=== PATIENT | male | born 1985 | race Caucasian/White ===

== ENCOUNTER 2019-08-28 14:31 | Emergency (ER) | payer SELFPAY ==
[2019-08-28 14:32] VITALS: BP 136/83; PULSE 124; RESP 18; TEMP 36.1; O2SAT 99; BMI 34.0
--- NOTE | 2019-08-28 14:38 | ED.VIS.GEN ---
History of Present Illness Chief Complaint: Lower Extremity Injury Detail of Chief Complaint: Injury right Achilles tendon Informant: Patient Onset: Yesterday Context: Sudden Onset Quality: Pain Location: Right Achilles tendon Current Severity: Mild Maximum Severity: Moderate Worsened by: Pushing off Relieved by: Rest Associated Symptoms: Difficulty ambulating Narrative: Patient is a 33-year-old male who presents with right Achilles tendon injury. He states he was walking foot went into a hole felt like rubber band snapped. He presents with limp. He denies paresthesia, anesthesia motor weeks. He denies hip, knee or anterior ankle pain. He localizes the pain over the Achilles tendon. Prior similar symptoms: No Recent Illness/Hospitalization: No - Past Medical History (1) No significant past medical history Status: Acute Past Medical History - Allergies and Home Meds Allergies/Adverse Reactions: Allergies No Known Allergies Allergy (Verified 09/28/17 12:54) Primary Care Physician: Care Physician,No Primary [Primary Care Provider] - Prior records reviewed: No Past Medical History: None Lives: Spouse/ Significant Other Smoking Status: Current every day smoker Alcohol: Rare Review of Systems General: Denies: Chills, Fever, Malaise Musculoskeletal: Reports: Extremity Pain. Denies: Myalgias, Arthralgias, Neck pain, Back pain, Swelling Skin: Denies: Rash, Wounds Neurological: Denies: Weakness, Parasthesia, Numbness Hematologic: Denies: Easy bruising, Easy bleeding Allergy: Denies: Uticaria, Swelling of the mouth Physical Exam Vital Signs/Narrative: Vital Signs Temp Pulse Resp BP Pulse Ox 08/28/19 14:32 96.9 F L 124 H 18 136/83 H 99 Inital Vital Signs reviewed: Yes General: Well nourished, Well developed, No Acute Distress Head: Normocephalic, Atraumatic Eyes: Perrl, EOMI. Negative for: Pale conjunctiva, Scleral icterus Cardiovascular: Regular rate, Regular rhythm Respiratory: No distress Extremities: No edema, Tenderness - Ears over the right Achilles tendon. Mckeon's test in the Achilles tendon is intact. Palpation of the Achilles tendon reveals gritty mass with passive dorsi and plantar flexion. There is no appreciable defect., - - There is no pain to palpation over the lateral medial malleolus. There is no pain the patient over the base of the fifth metatarsal. DP and PT pulses are palpable.. Negative for: Nontender Skin: Normal color, No rash, No Trauma. Negative for: Cyanosis, Diaphoresis, Jaundice Neurological: Alert, Oriented x3, Normal Strength, Normal Sensation. Negative for: Normal Gait Psychological: Normal affect Diagnostic/Tx/Re-eval - Medical Decision Making Patient has traumatic Achilles tendinitis. The tendon is functionally intact and there is no palpable defect. Since there is no contra indication NSAIDs he was treated with NSAIDs and crutches. He was referred to podiatry. ED Disposition - Plan for ED Patient: Disposition: Home or Assisted Living Diagnosis: Achilles tendinitis, right leg Instructions: What Is Tendinitis of the Foot? Prescriptions: Naproxen [Naprosyn] 500 mg PO BID #14 tab Prescription Printed Referrals: Care Physician,No Primary [Primary Care Provider] - 3-5 Days Dallas Sharma DPM [STAFF PHYSICIAN] - 3-5 Days Additional Instructions: Use crutches until cleared by Dr. Sharma. Weight-bear as tolerated only
== END 2019-08-28 15:10 | disposition home or self-care (01) ==
LOC: ED 14:55
PROVIDERS: Emergency Provider Emergency Medicine
DX: M76.61 Achilles tendinitis, right leg (principal); R26.2 Difficulty in walking, not elsewhere classified; W17.2XXA Fall into hole, initial encounter; Y93.9 Activity, unspecified; Y92.9 Unspecified place or not applicable; Y99.9 Unspecified external cause status; F17.200 Nicotine dependence, unspecified, uncomplicated
CPT/HCPCS: 99283

== ENCOUNTER 2020-10-31 13:13 | Emergency (ER) | payer SELFPAY ==
[2020-10-31 13:14] VITALS: BP 121/77; PULSE 82; RESP 17; TEMP 36.2; O2SAT 99; BMI 33.2
[2020-10-31 13:17] VITALS: BP 121/77; PULSE 80; RESP 17; TEMP 36.2; O2SAT 99
--- NOTE | 2020-10-31 13:32 | ED.VIS.GEN ---
History of Present Illness Chief Complaint: Cellulitis Informant: Patient Onset: Days Context: Gradual Onset Timing: Continuous Current Severity: Moderate Maximum Severity: Moderate Narrative: Patient is a 34-year-old male with medical history significant for prior MRSA the presents to the emergency department for wound on his right leg. Patient states he noticed a small red area a few days ago. He states he tito a grand [place] around it. Last night when he got home from work, the redness had spread. He denies any fevers or chills. He has no history immunosuppression. He is not on any daily medications. He cannot recall any trauma. He states he did try to squeeze the area and some pus. Came out Prior similar symptoms: No Recent Illness/Hospitalization: No Past Medical History - Allergies and Home Meds Allergies/Adverse Reactions: Allergies No Known Allergies Allergy (Verified 10/31/20 13:14) Primary Care Physician: Care Physician,No Primary [Primary Care Provider] - Prior records reviewed: Yes Past Medical History: None Surgical History: no surgical history Smoking Status: Former smoker Review of Systems General: Denies: Chills, Fever, Sweats Eyes: Denies: Visual changes - bilaterally, Diplopia ENT: Denies: Rhinorrhea, Sore throat Cardiovascular: Denies: Chest pain, Palpitations Respiratory: Denies: Dyspnea, Cough, Dyspnea on exertion Gastrointestinal: Denies: Abdominal pain, Nausea, Vomiting, Diarrhea, Melena, Hematochezia Genitourinary: Denies: Dysuria, Hematuria, Frequency Musculoskeletal: Denies: Back pain, Extremity Pain Skin: Denies: Rash, Wounds Neurological: Denies: Headache, Weakness, Numbness Physical Exam Vital Signs/Narrative: Vital Signs Temp Pulse Resp BP Pulse Ox 10/31/20 13:17 97.2 F L 80 17 121/77 H 99 10/31/20 13:14 97.2 F L 82 17 121/77 H 99 Inital Vital Signs reviewed: Yes General: Well nourished, Well developed, No Acute Distress Head: Normocephalic, Atraumatic Eyes: Perrl, EOMI ENT: Moist mucous membranes, No rhinorrhea Neck: Supple, Nontender Cardiovascular: Regular rate, Regular rhythm, No murmurs Respiratory: No distress, CTA bilaterally, Chest nontender Abdomen: Soft, Nontender, Nondistended, Normal bowel sounds Back: Nontender, Normal Inspection Extremities: Nontender, No edema Skin: - - Patient has 2 cm ovoid abscess just distal to the tibial tuberosity. There is some surrounding cellulitis. There is no significant streak. The compartments are soft. The pulses are normal. Neurological: Alert, Oriented x3, Cranial nerves II-XII grossly intact, Normal Strength, Normal Sensation Psychological: Normal affect, Normal Mood Diagnostic/Tx/Re-eval - Medical Decision Making Patient did have a small abscess with surrounding cellulitis. He was consented for incision and drainage. The area was prepped with chlorhexidine. 2 cc of lidocaine 1% with epinephrine were injected. Small incision was made with the 11 blade. Scant purulent material was able to be expressed. The pocket was very shallow. I do not feel needed packing. The patient will be placed on Bactrim. I did employee counselor him that if this is not improving or worsening in any way follow-up with his primary care or return to the emergency department within the next 24 to 48 hours. He is comfortable with this. . Impression 1. Right guy abscess with incision and drainage ED Disposition - Plan for ED Patient: Instructions: ED Abscess Incision And Drainage Prescriptions: Smz/Tmp Ds [Bactrim Ds] 1 tab PO BID #14 tab Prescription Printed Hydrocodone Bitart/Apap 5-325 [[place] 5MG-325MG] 1 tab PO Q6H PRN PRN 2 Days #7 tab PRN Reason: Pain Prescription Printed Referrals: Care Physician,No Primary [Primary Care Provider] -
[2020-10-31] MEDS: Lidocaine 1% /Epi 1:100 (20ml) 20 ML Vial INFILT (13:44)
[2020-10-31 14:22] VITALS: RESP 15
== END 2020-10-31 14:24 | disposition home or self-care (01) ==
LOC: ED 13:54
PROVIDERS: Emergency Provider Emergency Medicine
DX: L02.415 Cutaneous abscess of right lower limb (principal); Z86.14 Personal history of Methicillin resistant Staphylococcus aureus infection; Z87.891 Personal history of nicotine dependence
CPT/HCPCS: 10060; 99283

== ENCOUNTER 2020-11-01 14:26 | Emergency (ER) | payer SELFPAY ==
[2020-10-31 13:14] VITALS: BMI 33.2
[2020-11-01 14:27] VITALS: BP 128/90; PULSE 76; RESP 18; TEMP 36.9; BMI 33.1
--- NOTE | 2020-11-01 14:40 | ED.DCSUM_ITS ---
History of Present Illness Chief Complaint: Cellulitis Narrative: 34-year-old male with history of MRSA presenting for worsening of cellulitic change on his leg. He states there was just a small iroquois and a small area of fluctuance which was outlined yesterday after incision and drainage. He states he is taken 3 doses of Bactrim and has not had this improved. In fact, he states that his entire anterior guy and somewhat surrounding medial and lateral areas are re now more red than they were. He does states that it hurts. Patient states that he had failure of outpatient about X in the past had to get a PICC line for IV antibiotics. He states this was several years ago. He denies fever. He states he feels a little bit more tired than usual. No nausea/vomiting. Past Medical History - Allergies and Home Meds Allergies/Adverse Reactions: Allergies No Known Allergies Allergy (Verified 10/31/20 13:14) Primary Care Physician: Care Physician,No Primary [Primary Care Provider] - Prior records reviewed: Yes Past Medical History: - - History of MRSA, failure of outpatient antibiotics. Surgical History: no surgical history Lives: Alone Smoking Status: Former smoker Alcohol: None Drugs: None Review of Systems General: Denies: Chills, Fever Eyes: Denies: Visual changes - bilaterally, Diplopia ENT: Denies: Rhinorrhea, Sore throat Cardiovascular: Denies: Chest pain, Palpitations Respiratory: Denies: Dyspnea, Cough, Dyspnea on exertion Gastrointestinal: Denies: Abdominal pain, Nausea, Vomiting, Diarrhea, Melena, Hematochezia Musculoskeletal: Reports: Extremity Pain. Denies: Back pain - Pain in the right tibia Skin: Reports: Rash, Abscess - Abscess right tibia with surrounding erythema. Neurological: Denies: Parasthesia, Numbness Psych: Reports: Depression. Denies: Anxiety Physical Exam Vital Signs/Narrative: Vital Signs Temp Pulse Resp BP 11/01/20 14:27 98.4 F 76 18 128/90 H Inital Vital Signs reviewed: Yes General: Well nourished, No Acute Distress Head: Normocephalic, Atraumatic Eyes: Perrl, EOMI ENT: Moist mucous membranes, Nasal congestion Neck: Supple, Nontender Cardiovascular: Regular rate, Regular rhythm Extremities: Tenderness - Tenderness around area of previous abscess in right anterior tibia approximately 2 to 3 cm. There is no active drainage.. Negative for: Calf Tenderness Skin: Rash, - - Area of previous incised abscess centrally on the mid tibia with no fluctuance. There is increased erythema of the anterior tibia and medial lateral areas. Negative thank you. Negative for: Cyanosis, Diaphoresis Diagnostic/Tx/Re-eval Chest X-Ray - ED: 1 View - Medical Decision Making Patient was seen and evaluated for worsening cellulitis after having incision and drainage performed yesterday. There is no drainage from his abscess currently. The tenderness is around this area. He does have some increasing erythema outside the border lines on his anterior tibia as described on physical exam. Given the patient's failure of antibiotics and the past I did recommend we do lab work and start IV antibiotics however he wants to try different outpatient antibiotic orally before he admits to coming into the hospital. I counseled him of the risk benefit of this and he still wants to try. I will switch his Bactrim to clindamycin. He states he will return if not better or if his condition worsens. Impression: 1. Cellulitis left tibia ED Disposition - Plan for ED Patient: Prescriptions: Clindamycin [Cleocin] 450 mg PO TID #90 cap Transmission Status: Pending to Verified Identity Pass #[id number] Referrals: Care Physician,No Primary [Primary Care Provider] -
[2020-11-01] MEDS: Clindamycin HCl 150 MG Capsule 450 MG PO (15:31)
== END 2020-11-01 15:34 | disposition home or self-care (01) ==
PROVIDERS: Emergency Provider Student in an Organized Health Care Education/Training Program
DX: L03.116 Cellulitis of left lower limb (principal); Z86.14 Personal history of Methicillin resistant Staphylococcus aureus infection; Z87.891 Personal history of nicotine dependence
CPT/HCPCS: 99283

== ENCOUNTER 2022-02-17 15:24 | Emergency (ER) | payer OTHER, SELFPAY ==
[2022-02-17 15:25] VITALS: BP 146/131; BP 151/99; PULSE 106; RESP 16; TEMP 36.6; O2SAT 99; BMI 34.2
[2022-02-17 15:27] VITALS: BP 151/99; PULSE 106; RESP 16; TEMP 36.6; O2SAT 99
--- NOTE | 2022-02-17 15:51 | EX.ED.DYSGE1 ---
HPI History of Present Illness Chief Complaint: Abscess Narrative Narrative: 36-year-old male with pain and swelling in the left cheek for couple of days. He states he has a history of MRSA and is concerned for infection. He states he has been trying to express fluid from it and then nothing coming out. He does note the edema is worse today. Some swelling around his eye. No pain with extraocular motion. No visual complaints. He does not feel systemically ill. PFSH PFSH Home Medications clindamycin HCl 450 mg PO TID #90 cap 11/01/20 [Rx Last Taken Unknown] sulfamethoxazole-trimethoprim [Bactrim DS] 1 tab PO BID #20 tab 02/17/22 [Rx Last Taken Unknown] Allergy/AdvReac Type Severity Reaction Status Date / Time No Known Allergies Allergy Verified 02/17/22 15:27 Social History Smoking Status: Current some day smoker ROS ROS ED Constitutional Constitutional ED: Denies chills or fever(s) Eyes Eyes: Denies blurry vision or diplopia ENT ENT ED: Denies rhinorrhea or sore throat Cardiovascular Cardiovascular: Denies chest pain or palpitations Respiratory/Chest Respiratory/Chest: Denies cough or dyspnea Gastrointestinal Gastrointestinal: Denies abdominal pain or nausea Genitourinary Genitourinary ED: Denies dysuria or hematuria Musculoskeletal Musculoskeletal: Denies arthralgias or myalgias Integumentary Reports other Details: Erythema and swelling to left cheek Neurologic Neurologic: Denies headache(s) or weakness Psychiatric Psychiatric: Denies anxiety or depression EXAM Physical Exam Const Vital Signs: 02/17/22 15:25 Temperature 97.8 F Temperature Source Temporal Pulse Rate 106 H Respiratory Rate 16 Blood Pressure 146/131 H Blood Pressure Mean 136 Pulse Ox 99 Oxygen Delivery Method Room Air Positive well nourished General Appearance ED: NAD HEENT HEENT Narrative: Erythema and swelling to the left cheek overlying the cheekbone. No fluctuance. There is edema up under the lower eyelid. No pain with extraocular motion. Negative for trauma Eyes PERRL and EOMs intact bilaterally Resp normal respiratory effort Cardio regular rate and regular rhythm Neuro oriented x3 and CN's II-XII intact bilaterally Sensorium / Orientation: alert Psych mental status grossly normal Skin Skin Narrative: As documented above MDM MDM MDM Narrative Medical decision making narrative: Patient presenting with left cheek swelling. He is concerned because has a history of MRSA. He does not have an abscess on his face however he does have some edema and erythema. Patient will be treated with Bactrim. First dose in the ER. He is counseled use hot compresses. He is also counseled that if his facial swelling does appear to start abscessing to return to the ER she is possible. Patient discharged home in stable condition. Impression: 1. Facial cellulitis Discharge Plan Triage Chief Complaint: Abscess ED Provider: Bandar Molina Dx/Rx/DC Orders Instructions: ED Cellulitis, Facial Prescriptions: New sulfamethoxazole-trimethoprim [Bactrim DS] 800-160 mg tablet 1 tab PO BID Qty: 20 RF: 0 No Action clindamycin HCl 150 MG capsule 450 mg PO TID Qty: 90 RF: 0 Primary Care Provider: Care Physician,No Primary Referrals: Emiliano Phillips MD [STAFF PHYSICIAN] - 3-5 Days Care Physician,No Primary [Primary Care Provider] - Disposition Disposition: Home, Self Care
[2022-02-17] MEDS: Smz/Tmp Ds Tablet 1 TABLET PO (16:04)
== END 2022-02-17 16:06 | disposition home or self-care (01) ==
PROVIDERS: Emergency Provider Student in an Organized Health Care Education/Training Program; Visit Provider Student in an Organized Health Care Education/Training Program
DX: L03.211 Cellulitis of face (principal); F17.200 Nicotine dependence, unspecified, uncomplicated; Z86.14 Personal history of Methicillin resistant Staphylococcus aureus infection
CPT/HCPCS: 99283

== ENCOUNTER 2022-06-17 13:23 | Emergency (ER) | payer OTHER, SELFPAY ==
[2022-06-17 13:24] VITALS: BP 159/98; PULSE 88; RESP 16; TEMP 36.3; O2SAT 98; BMI 33.7
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
[2022-06-17 15:48] VITALS: RESP 18
== END 2022-06-17 16:02 | disposition home or self-care (01) ==
PROVIDERS: Emergency Provider Emergency Medicine; Visit Provider Emergency Medicine
DX: S06.0X0A Concussion without loss of consciousness, initial encounter (principal); S20.20XA Contusion of thorax, unspecified, initial encounter; S50.02XA Contusion of left elbow, initial encounter; S80.02XA Contusion of left knee, initial encounter; V18.0XXA Pedal cycle driver injured in noncollision transport accident in nontraffic accident, initial encounter; F17.210 Nicotine dependence, cigarettes, uncomplicated
CPT/HCPCS: 70450; 71046; 73080; 73564; 99282

== ENCOUNTER 2023-07-27 22:56 | Emergency (ER) | payer MEDICAID, SELFPAY ==
[2023-07-27 22:57] VITALS: BP 135/100; PULSE 99; RESP 17; TEMP 36.8; O2SAT 93; BMI 36.6
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
[2023-07-27] MEDS: Lidocaine 1% /Epi 1:100 (20ml) 20 ML Vial INFILT (23:30)
[2023-07-27] MEDS: Diphth,Pertuss(Acell),Tet Vac 0.5 ML Vial IM (23:30)
== END 2023-07-27 23:41 | disposition home or self-care (01) ==
PROVIDERS: Emergency Provider Emergency Medicine; Visit Provider Emergency Medicine
DX: S01.01XA Laceration without foreign body of scalp, initial encounter (principal); W01.198A Fall on same level from slipping, tripping and stumbling with subsequent striking against other object, initial encounter; F17.210 Nicotine dependence, cigarettes, uncomplicated
CPT/HCPCS: 12002; 90715; 99282

== ENCOUNTER → 2024-02-24 | Outpatient (CLI) | payer OTHER, SELFPAY ==
--- NOTE | 2024-02-24 14:18 | MRI_ITS ---
STUDY: MRI LEFT ELBOW REASON FOR EXAM: Male, 38 years old. SPRAIN, STRAIN TECHNIQUE: Standardized fat and water weighted pulse sequences were obtained in all 3 orthogonal planes. COMPARISON: None. FINDINGS: Normal radio-capitellum articulation. Normal radial collateral ligamentous complex. Normal common extensor tendon. Normal ulnotrochlear articulation. Normal ulnar collateral ligamentous complex. Normal common flexor tendon. The cubital tunnel is normal, with a normal ulnar nerve. There is a tear/rupture of the distal biceps tendon, with 6 cm proximal tendon retraction (sagittal T2 series 7 images 20-24). Normal brachialis musculotendinous insertion. Normal triceps tendon and teno-osseous insertion. Normal olecranon process. The visualized distal humerus, proximal radius, and ulna are normal. The visualized muscles of the distal arm and proximal forearm are normal. The soft tissue structures are unremarkable. MRI/Upper Ext Joint Only(Routine) IMPRESSION: Tear/rupture of the distal biceps tendon, with 6 cm proximal tendon retraction. Electronically Signed: Marco A Chan MD at 15:38 EDT ,
== END | disposition home or self-care (01) ==
PROVIDERS: Visit Provider Family Medicine
DX: S53.402A Unspecified sprain of left elbow, initial encounter (principal); S46.212A Strain of muscle, fascia and tendon of other parts of biceps, left arm, initial encounter; X58.XXXA Exposure to other specified factors, initial encounter
CPT/HCPCS: 73221

== ENCOUNTER 2024-02-29 09:32 | Emergency (ER) | payer MEDICAID, SELFPAY ==
[2024-02-29 09:32] VITALS: BP 151/109; BP 174/111; PULSE 74; PULSE 76; RESP 16; RESP 18; TEMP 36.6; O2SAT 100; BMI 35.1
--- NOTE | 2024-02-29 10:07 | EX.ED.DYSGE1 ---
HPI History of Present Illness Chief Complaint: Back Detail of Chief Complaint: Muscle soreness Informant: patient Narrative Narrative: Patient presents with complaint of muscle soreness initially noted yesterday. Patient states this morning had a hard time moving around because of the pain. He tells me that he had surgery on his left bicep 2 days ago at [facility]. He called the after-hours line and was instructed to come to the ER [facility]. Patient denies any fever. He denies cough. He describes diffuse bodyaches in his back as well as his legs and abdominal musculature. Patient denies any falls or recent injuries. He has no medical history otherwise. Patient denies any change in his urine. PFSH PFS Home Medications NK 06/17/22 [History Last Taken Unknown] Allergy/AdvReac Type Severity Reaction Status Date / Time No Known Allergies Allergy Verified 02/29/24 09:33 Surgical History S/P left knee arthroscopy S/P ORIF (open reduction internal fixation) fracture Social History (Updated 07/27/23 @ 23:[address] Clovis Grant DO) Smoking Status: Current some day smoker tobacco type: cigarettes ROS ROS ED Review of Systems ROS Unobtainable: other Constitutional Constitutional ED: Reports lethargy; Denies chills, fever(s), sweats or weight loss Eyes Eyes: Denies blurry vision, change in vision or diplopia ENT ENT ED: Denies rhinorrhea or sore throat Cardiovascular Cardiovascular: Denies chest pain, orthopnea or racing heartbeat Respiratory/Chest Respiratory/Chest: Denies cough, dyspnea, dyspnea on exertion, orthopnea or sputum Gastrointestinal Gastrointestinal: Denies abdominal pain, diarrhea, nausea or vomiting Genitourinary Genitourinary ED: Denies dysuria, hematuria or urinary frequency Musculoskeletal Musculoskeletal: Reports back pain and myalgias; Denies arthralgias or neck pain Integumentary Denies abscess, Abrasions or rash Neurologic Neurologic: Denies headache(s) or weakness Psychiatric Psychiatric: Denies anxiety, depression or suicidal thoughts Endocrine Endocrinology: Denies polydipsia, polyphagia or polyuria Hematologic/Lymphatic Hematologic/Lymphatic: Denies easy bleeding, easy bruising or lymphadenopathy Allergic/Immunologic Allergic/Immunologic ED: Denies mouth swelling, tongue swelling or urticaria EXAM Physical Exam Const Vital Signs: 02/29/24 09:32 02/29/24 09:32 Temperature 98 F Temperature Source Temporal Pulse Rate 76 74 Respiratory Rate 18 16 Blood Pressure 174/111 H 151/109 H Blood Pressure Mean 132 123 Pulse Ox 100 100 Oxygen Delivery Method Room Air Room Air Positive well nourished and well developed General Appearance ED: well developed and NAD HEENT Reports TM's clear and moist mucous membranes normocephalic and atraumatic; Negative for trauma or tenderness Tympanic Membrane ED: Yes TM's clear Eyes PERRL and EOMs intact bilaterally General Eye ED: Negative for pale conjunctiva or scleral icterus Neck no lymphadenopathy, supple and no JVD General: Negative for tenderness Chest Wall inspection of chest normal and palpation of chest normal Chest: Negative for tenderness Resp normal respiratory effort and clear to auscultation bilaterally Effort and Inspection: Negative for respiratory distress or pain with movement Auscultation: Negative for rhonchi, wheezes or diminished lung sounds Cardio regular rate, regular rhythm, S1 normal heart sound, S2 normal heart sound and no murmurs Peripheral Pulses: pulses 2+ throughout GI normal to inspection, nondistended, normoactive bowel sounds, soft to palpation, non-tender, non-distended and no masses Back/Spine no CVA tenderness and no thoracic nor lumbar tenderness Back/Spine Narrative: Mild diffuse tenderness over the thoracic and lumbar paraspinal musculature bilaterally. Extremity normal to inspection General Extremety ED: Negative for edema General Extremity: Negative for edema Neuro oriented x3, CN's II-XII intact bilaterally, no sensory deficits noted and gait normal Sensorium / Orientation: awake, alert, oriented to person, oriented to place and oriented to time Motor Exam: strength 5/5 throughout and strength abnormal Psych mental status grossly normal Skin no rashes or lesions noted and no wounds MDM MDM MDM Narrative Medical decision making narrative: Patient presents to the ER with complaint of diffuse myalgias that started yesterday. He is recently postop 2 days ago for bicep muscle repair left arm. Clinically he looks well. He said no falls or injuries. In the differential would be a viral etiology versus rhabdomyolysis versus possibly autoimmune which I feel is less likely given sudden onset nature of complaint. I did establish an IV. CBC with differential patient awakened at 5.8 with hemoglobin 15 and platelet count of 131. Chemistries unremarkable. BUN 20 and creatinine 0.98. I did obtain a total CPK which was minimally elevated at 319 and I suspect this is likely related to surgery. Calcium was just minimally depressed at 8.3 but do not feel this is the cause of his symptoms. COVID flu and RSV testing was negative. Patient did receive Toradol 30 mg IV. This point he looks well. Will advised to follow-up with primary care physician on-call . Will discharge to home and advised to follow-up within next 3 to 5 days. Patient advised to return to the emergency department if condition should worsen in any way. Lab Data Attestation: I reviewed the patient's lab results. Labs: Laboratory Results - last 24 hr 02/29/24 10:15 WBC 5.8 RBC 4.81 Hgb 15.2 Hct 45.0 MCV 93.6 MCH 31.6 MCHC 33.8 RDW Std Deviation 47.0 H RDW Coeff of Emilia 13.7 Plt Count 131 L MPV 10.9 Immature Gran % (Auto) 0.500 Neut % (Auto) 56.0 Lymph % (Auto) 34.7 Bennett % (Auto) 8.0 Eos % (Auto) 0.5 Baso % (Auto) 0.3 Absolute Neuts (auto) 3.2 Absolute Lymphs (auto) 2.00 Nucleated RBC % 0 Sodium 136 Potassium 3.8 Chloride 101 Carbon Dioxide 29.0 Anion Gap 6 BUN 20 H Creatinine 0.98 Estim Creat Clear Calc 144.40 Est GFR (MDRD) Af Amer 111 Est GFR (MDRD) Non-Af 92 BUN/Creatinine Ratio 20.4 H Glucose 94 Calcium 8.3 L Total Creatine Kinase 319 H Discharge Plan Triage Chief Complaint: Back ED Provider: Sean Vegas Dx/Rx/DC Orders Clinical Impression: Myalgia Instructions: ED Myalgias Prescriptions: No Action NK Primary Care Provider: Care Physician,No Primary Referrals: Emiliano Phillips MD [Med Staff - Active Staff] - 3-5 Days Care Physician,No Primary [Primary Care Provider] - Disposition Disposition: Home, Self Care
[2024-02-29 10:25] LABS: Absolute Neutrophil Count 3.2 X10^3/uL (2.0-7.7); Basophil# 0.02 X10^3/uL; Basophil% 0.3 % (0-1); Eosinophil# 0.03 X10^3/uL; Eosinophils% 0.5 % (0-5); Hemoglobin 15.2 g/dL (13.0-16.5); Lymphocyte % 34.7 % (19-41); Mean Corp Hgb Conc 33.8 g/dL (32-36); Mean Corpuscular Hgb 31.6 pg (27.0-32.0); Mean Corpuscular Volume 93.6 fL (80-94); Mean Platelet Vol. 10.9 fl (6.2-12.0); Monocyte# 0.46 X10^3/uL; NRBC Flagged by Analyzer 0 % (0-5); Neutrophil # 3.22 X10^3/uL (2.7-7.7); Platelet Count 131 K/mm3 (150-450); RBC Distribution Width CV 13.7 % (11.6-14.6); Red Blood Count 4.81 M/mm3 (4.6-6.2); White Blood Count 5.8 K/mm3 (4.4-11.0)
[2024-02-29 10:40] LABS: Anion Gap 6 (5-15); BUN 20 mg/dL (7-18); BUN/Creat Ratio 20.4 RATIO (10-20); CPK Total, Creatine Kinase 319 U/L (39-308); Calcium,Total 8.3 mg/dL (8.5-10.1); Chloride 101 mmol/L (98-107); Creatinine, Serum 0.98 mg/dL (0.70-1.30); EST Glomerular Filtration Rate 92 mL/min (>60); Est Glom Filt Rate - Afr Amer 111 mL/min (>60); Glucose 94 mg/dL (74-106); Potassium 3.8 mmol/L (3.5-5.1); Sodium Level 136 mmol/L (136-145)
[2024-02-29] MEDS: Ketorolac 30 MG/ML Syringe IV (10:56)
[2024-02-29 11:54] VITALS: BP 127/66; PULSE 84; RESP 16; TEMP 36.4; O2SAT 99
== END 2024-02-29 11:54 | disposition home or self-care (01) ==
PROVIDERS: Emergency Provider Emergency Medicine; Visit Provider Emergency Medicine
DX: M79.10 Myalgia, unspecified site (principal); F17.210 Nicotine dependence, cigarettes, uncomplicated; M54.9 Dorsalgia, unspecified; Z11.52 Encounter for screening for COVID-19; Z98.890 Other specified postprocedural states
CPT/HCPCS: 80048; 82550; 85025; 87631; 96374; 99283; A4216

== ENCOUNTER 2024-10-02 11:32 | Emergency (ER) | payer SELFPAY ==
[2024-10-02 11:32] VITALS: BP 151/101; BP 158/105; PULSE 105; PULSE 112; RESP 14; RESP 16; TEMP 36.1; O2SAT 98
== END 2024-10-02 12:14 | disposition home or self-care (01) ==
PROVIDERS: Emergency Provider Emergency Medicine; Visit Provider Emergency Medicine
DX: A63.0 Anogenital (venereal) warts (principal); F17.210 Nicotine dependence, cigarettes, uncomplicated
CPT/HCPCS: 99282

== ENCOUNTER 2025-09-11 19:32 | Emergency (ER) | payer MEDICAID, SELFPAY ==
[2025-09-11 19:33] VITALS: BP 142/84; PULSE 117; RESP 18; TEMP 36.9; O2SAT 97; BMI 29.8
[2025-09-11] MEDS: Albuterol 2.5 MG/3 ML VIAL.NEB. INHALATION (20:38)
[2025-09-11 20:41] VITALS: PULSE 109; RESP 18
[2025-09-11 21:41] VITALS: BP 124/78; PULSE 109; RESP 18; TEMP 36.7; O2SAT 100
== END 2025-09-11 21:43 | disposition home or self-care (01) ==
PROVIDERS: Emergency Provider Emergency Medicine; Visit Provider Emergency Medicine
DX: J45.909 Unspecified asthma, uncomplicated (principal); F17.210 Nicotine dependence, cigarettes, uncomplicated
CPT/HCPCS: 94640; 99282